=== PATIENT | male | born 1955 | race Caucasian/White ===

== ENCOUNTER → 2017-03-05 | Outpatient (CLI) | payer BC ==
--- NOTE | 2017-03-05 13:26 | CT ---
EXAMINATION TYPE: CT abdomen w con DATE OF EXAM: 03/05/2017 COMPARISON: CT abdomen and pelvis February 17, 2014 HISTORY: Patient complains of RUQ pain. CT DLP: 1634 mGycm, Automated Exposure Control for Dose Reduction was Utilized. CONTRAST: CT scan of the abdomen is performed with oral and with IV Contrast, patient injected with 100 mL of O mnipaque 300. FINDINGS: LUNG BASES: Respiratory motion artifact is present. Bases are grossly clear. LIVER/GB: Liver is diffusely low dense consistent with fatty infiltration. There are few scattered si mple appearing thin-walled cysts throughout the liver redemonstrated. Contracted gallbladder is noted . PANCREAS: No significant abnormality is seen. SPLEEN: No significant abnormality is seen. ADRENALS: Low dense nodular thickening to both adrenal glands favors benign hyperplasia and is not si gnificantly changed from prior. KIDNEYS: No significant abnormality is seen. BOWEL: Oral contrast does not reach colonic level. Normal-appearing appendix is seen ascending from c ecum. There is small bowel feces sign in distal ileum consistent with delayed passage of ingested mat erial 2 colonic level. No suspicious bowel dilatation is present. LYMPH NODES: No greater than 1cm abdominal lymph nodes nodes are appreciated. Prominent retroperiton eal lymph nodes on prior study or diminished in size on current study. OSSEOUS STRUCTURES: There is prominent multilevel spurring in the spine. There is multilevel vacuum d isc phenomenon. There is spurring of both sacroiliac joints. OTHER: No significant additional abnormality is seen. IMPRESSION: No significant acute finding is seen to account for patient's clinical symptoms.
== END | disposition home or self-care (01) ==
LOC: RADCTMAIN 11:56
PROVIDERS: ATTEND Internal Medicine Critical Care Medicine
DX: R10.84 Generalized abdominal pain (principal)
CPT/HCPCS: 74160; 36415; Q9967

== ENCOUNTER 2018-04-22 09:57 | Day surgery (SDC) | payer BC ==
[2018-04-19 17:08] VITALS: BMI 41.5
[~2018-04-22 09:57] MED LIST: HYDROmorphone 0.5 MG/0.5 ML SYRINGE IVP PRN; LACTATED RINGERS 1,000 ML IV SCH
[2018-04-22 10:31] VITALS: TEMP 98.4
[2018-04-22] MEDS ORDERED: LIDOCAINE 1% 20 ML VIAL (10MG/ML) FOR IV START INTRADERMA ONE (10:49)
[2018-04-22] MEDS ORDERED: PROPOFOL 10 MG/ML 20 ML VIAL IV ONE (11:18)
--- NOTE | 2018-04-22 12:16 | P.PCN ---
Date of Procedure: 04/22/18 Description of Procedure: BRIEF HISTORY: Pleasant 62-year-old male with a prior medical history significant for colonic polyps who is seen for outpatient colonoscopy. The patient had his last colonoscopy last year at which time 2 polyps were removed with pathology showing serrated adenoma and tubular adenoma. The patient was instructed to have repeat colonoscopy in 1 year, however it is unclear if the patient's polyp was removed piecemeal fashion and this is why he was instructed to do so. He denies any change in bowel habits hematochezia, or melena. He does have a history of chronic constipation for which he was previously taking Metamucil therapy. PROCEDURE PERFORMED: Colonoscopy with hot snare polypectomy, cold snare polypectomy and cold forcep polypectomy. . PREOPERATIVE DIAGNOSIS: High risk surveillance, history of colonic polyps. ESTIMATED BLOOD LOSS: Minimal. IV sedation per Anesthesia. PROCEDURE: After informed consent was obtained, the patient, was brought into the endoscopy unit. IV sedation was administered by Anesthesia under continuous monitoring. Digital rectal examination was normal. Initially the Olympus CF- 190 flexible video colonoscope was then inserted in the rectum, gradually advanced into the cecum without any difficulty. Careful examination was performed as the scope was gradually being withdrawn. Ileocecal valve and the appendiceal orifice were visualized and appeared normal. Prep was excellent. Mucosa of the cecum, ascending colon, transverse colon, descending colon, sigmoid colon, and rectum appeared normal. mild scattered diverticulosis in the sigmoid and descending colon. Hot snare polypectomy of a 8 mm ascending colon polyp. Cold snare polypectomy of a 3 mm ascending colon polyp. Cold snare polypectomy of the 6 mm descending colon polyp. Cold forcep polypectomy of a 3 mm descending colon polyp. Cold forcep polypectomy of a 4 mm rectal polyp.Retroflexion was performed in the rectum and no lesions were seen, mild internal hemorrhoids were seen . The patient tolerated the procedure well. IMPRESSION: 1. Mild scattered diverticulosis. 2. 2 ascending colon polyps resected and retrieved. 2 descending colon polyps resected and retrieved. One rectal polyp resected and retrieved. 3. Mild internal hemorrhoids. RECOMMENDATIONS: Findings of this examination were discussed with the patient. Okay for diet. Await pathology from polypectomies. Continue MiraLAX therapy. Repeat colonoscopy in 3 years pending pathology from biopsies/polypectomy.
[2018-04-22 12:28] VITALS: RESP 16
[2018-04-22 12:57] VITALS: BP 148/86; PULSE 70
== END 2018-04-22 13:37 | disposition home or self-care (01) ==
LOC: ORWHC2ENDO 09:57
PROVIDERS: ATTEND Internal Medicine
DX: D12.2 Benign neoplasm of ascending colon (principal); D12.4 Benign neoplasm of descending colon; D12.8 Benign neoplasm of rectum; K57.30 Diverticulosis of large intestine without perforation or abscess without bleeding; K64.8 Other hemorrhoids; Z86.010 Personal history of colon polyps; K59.09 Other constipation; K21.9 Gastro-esophageal reflux disease without esophagitis; L98.8 Other specified disorders of the skin and subcutaneous tissue; E66.9 Obesity, unspecified; Z68.41 Body mass index [BMI] 40.0-44.9, adult; Z79.1 Long term (current) use of non-steroidal anti-inflammatories (NSAID); Z79.899 Other long term (current) drug therapy; Z88.0 Allergy status to penicillin; Z88.2 Allergy status to sulfonamides
CPT/HCPCS: 88305; 45380; 45385; J2704

== ENCOUNTER 2022-03-14 09:39 | Day surgery (SDC) | payer MEDICARE ==
[~2022-03-14 09:39] MED LIST changes: +ALPRAZolam 0.25 MG TAB PO PRN; +ALPRAZolam 0.5 MG TAB PO PRN; +ASPIRIN 325 MG TAB PO STA; +ATORVASTATIN 80 MG TAB PO STA; +HEPARIN SODIUM,PORCINE 10,000 UNIT in SODIUM CHLORIDE 0.9% 1,000 ML IRRIGATION PRN; +HEPARIN SODIUM,PORCINE 2,500 UNIT in SODIUM CHLORIDE 0.9% 250 ML IRRIGATION PRN; -HYDROmorphone 0.5 MG/0.5 ML SYRINGE IVP PRN; -LACTATED RINGERS 1,000 ML IV SCH; +NITROGLYCERIN SL TABS 0.4 MG TAB SUBLINGUAL PRN; +SODIUM CHLORIDE 0.9% 1,000 ML in EMPTY BAG 1 BAG IV SCH
[2022-03-14] MEDS ORDERED: VERAPAMIL 2.5 MG/ML 2 ML AMP ONE (10:07)
[2022-03-14 10:08] VITALS: RESP 18; TEMP 98.7
[2022-03-14] MEDS ORDERED: HEPARIN SODIUM 1,000 UN/ML (10ML VL) ONE (10:26)
[2022-03-14] MEDS ORDERED: MIDAZOLAM 2 MG/2 ML VIAL IVP ONE (10:40)
[2022-03-14] MEDS ORDERED: LIDOCAINE 1% INJ 10MG/ML (5 ML VIAL-PF) SQ ONE (10:44)
[2022-03-14] MEDS: VERAPAMIL SYRINGE (5 MG/10 ML) INTRAARTER ONE ×2 (10:47→10:59)
[2022-03-14] MEDS ORDERED: HEPARIN SODIUM 1,000 UN/ML (10ML VL) IV ONE (10:47)
[2022-03-14] MEDS ORDERED: IOPAMIDOL-370 100ML BTL INJ ONE (10:57)
[2022-03-14] MEDS ORDERED: SODIUM CHLORIDE 0.9% 1,000 ML IV SCH (11:00)
--- NOTE | 2022-03-14 13:07 | CC ---
CARDIAC CATHETERIZATION REPORT PROCEDURES PERFORMED: Left heart catheterization and coronary angiography. PERFORMED BY: Dr. Don Kendall. Moderate conscious sedation time was 15 minutes. The patient was administered Versed. Oxygen saturation, hemodynamics and EKG were monitored closely. CLINICAL INFORMATION: Mr. Jean Claude Tellez is a 66-year-old gentleman with a history of calcified coronary arteries and ascending aortic dilatation of 4.4 cm. He had a recent positive stress test with lateral wall reversible defect and preserved contractility. He was advised cardiac cath given the stress test abnormality, exertional shortness of breath and atherosclerotic picture of his aorta with dilatation and also calcified coronary arteries. Risks, benefits, options, rationale were explained. PROCEDURE NOTE: Under local anesthesia and strict aseptic precautions, a 6-Kittitian introducer was placed in the right radial artery. Using JL3.5 and JR4 catheters, I performed coronary angiography and the same right catheter was used to check LV pressure, but LV gram was not performed. The sheath was taken out and TR band applied as per protocol and saturation in the fingers of the right hand was 94%. The patient tolerated the procedure well without complication. CARDIAC CATHETERIZATION FINDINGS: The left ventricular end-diastolic pressure was 11 mmHg. There was no gradient across the aortic valve. CORONARY ANGIOGRAPHY FINDINGS: RIGHT CORONARY ARTERY: Large dominant vessel has no significant disease. Tortuous in the proximal portion, bifurcates early into PDA and PLV, both of which are of good caliber, have minor irregularities of less than 30%. No significant disease. LEFT MAIN CORONARY ARTERY: Short, patent vessel free of significant disease that trifurcates into LAD, a small ramus and circumflex. Left main itself is short and free of significant disease. LEFT ANTERIOR DESCENDING CORONARY ARTERY: Good-caliber vessel extends along the anterior wall, gives off a good-sized diagonal branch that has minor irregularities and the LAD runs all the way to the apex supplying a sizable amount of myocardium. The LAD and diagonal have mild calcification and evidence of mild irregularities of less than 30%. Ramus, this is a small caliber small distribution vessel that comes off right proximally and has minor irregularities. Left posterior circumflex coronary artery: Nondominant vessel gives off a good single obtuse marginal that runs laterally, has minor irregularities of less than 30%. No significant disease. FINAL IMPRESSION: This patient has a right-dominant system. Normal filling pressures. No gradient. Minor noncritical disease. Mild calcification. RECOMMENDATIONS: I am recommending continued medical therapy with beta blockers and statins and aspirin 81 mg daily. I am recommending that we will follow up his ascending aortic aneurysm noninvasively with a CT angiogram in 5 to 6 months. Findings were discussed with the patient and . He can be discharged later on today. He will be seen in the office in 1 week. MMODL / MARKN: [id number] /
[2022-03-14 15:26] VITALS: BP 134/72; PULSE 63
== END 2022-03-14 16:10 | disposition home or self-care (01) ==
LOC: CATHCVL 09:39
PROVIDERS: ATTEND Internal Medicine Interventional Cardiology
DX: I25.10 Atherosclerotic heart disease of native coronary artery without angina pectoris (principal); I71.21 Aneurysm of the ascending aorta, without rupture; R94.39 Abnormal result of other cardiovascular function study; Z79.899 Other long term (current) drug therapy; Z88.0 Allergy status to penicillin; Z88.2 Allergy status to sulfonamides
CPT/HCPCS: 93458; C1769; C1894; J2250; J2001; J1644; Q9967

== ENCOUNTER → 2023-03-02 | Outpatient (CLI) | payer MEDICARE ==
--- NOTE | 2023-03-03 09:59 | XR ---
EXAMINATION TYPE: XR lumbar spine with bend/flex DATE OF EXAM: 03/02/2023 10:30 AM CLINICAL INDICATION:Male, 67 years old with history of M47.816 lumbar spondylosis; [facility] COMPARISON: None TECHNIQUE: XR lumbar spine with bend/flex - 7 views including obliques and lateral flexion/extension views. FINDINGS: Generalized osteopenia. No evidence for osseous destructive process or compression fracture . Moderate multilevel degenerative disc disease with predominantly anterior marginal osteophytes. Mod erate facet arthrosis mostly in the mid to lower lumbar region. There is likely at least mild/moderat e spinal canal and neural foraminal stenosis at each moderate multilevel level. No definite pars defe cts are shown. There is very slight levocurvature of the lumbar spine centered at L2. In the neutral position, there is trace retrolisthesis L2 on L3 otherwise normal alignment. Limited m obility noted with flexion, without significant change in alignment. There is slightly greater flexib ility on extension without significant change in alignment. Mild/moderate degenerative changes of the SI joints partially seen. Unremarkable bowel gas pattern. IMPRESSION: 1. No plain film evidence of acute compression fracture or other acute abnormality. 2. Moderate multilevel lumbar spondylosis. 3. In the neutral position, there is trace retrolisthesis L2 on L3 otherwise normal alignment. Limite d mobility noted with flexion, without significant change in alignment. There is slightly greater fle xibility on extension without significant change in alignment.
== END | disposition home or self-care (01) ==
LOC: RADXRMAIN 10:09
PROVIDERS: ATTEND Physical Medicine & Rehabilitation
DX: M47.816 Spondylosis without myelopathy or radiculopathy, lumbar region (principal); M43.16 Spondylolisthesis, lumbar region
CPT/HCPCS: 72114